=== PATIENT | female | born 1965 | race Caucasian/White ===

== ENCOUNTER → 2020-01-04 | Outpatient (CLI) | payer MEDICARE ==
--- NOTE | 2020-01-04 09:11 | REP ---
Abdominal Right Upper Quadrant Ultrasound: Abdominal right upper quadrant ultrasound for the the epigastric pain, heartburn.: There are no comparison studies. There is no cholelithiasis, gallbladder wall thickening or pericholecystic fluid. There is no intrahepatic or extrahepatic biliary duct dilatation. The common biliary duct measures 2.7 mm in diameter. The hepatic parenchyma is the the homogeneous. There are no hepatic masses. The visualized areas of the pancreas are unremarkable. Portions of the pancreas are obscured by bowel gas. The right kidney measures 9.6 x 4.4 x 3.9 cm and is normal size. There is no right renal calculus or hydronephrosis. There is a small echogenic solid mass in the right renal lower pole measuring 0.5 x 0.4 x 0.4 cm. The There is no right upper quadrant abdominal free fluid. The Impression: No cholelithiasis or biliary duct dilatation. No ultrasound evidence of acute cholecystitis. Portions of the pancreas are obscured by bowel gas. 0.5 cm small right renal lower pole, solid nodule. Follow-up CT or MRI without and with IV contrast might be considered for further evaluation. Electronically Signed by Rancho Mcdonald MD 01/04/2020 09:04 A
== END ==
LOC: M RAD 07:17
PROVIDERS: ATTEND Internal Medicine Gastroenterology
DX: R10.13 Epigastric pain (principal)

== ENCOUNTER → 2020-05-12 | Outpatient (CLI) | payer MEDICARE ==
[~2020-05-12] MED LIST: CYCL5TAB PO; FLUO40CA PO; GABA600T4 PO; HYDR-3716 PO; LORA-674 PO; TRAZ150T90 PO
== END ==
LOC: M LABSMTC 10:20
PROVIDERS: ATTEND Anesthesiology
DX: Z01.818 Encounter for other preprocedural examination (principal); Z11.59 Encounter for screening for other viral diseases
CPT/HCPCS: C9803; U0003

== ENCOUNTER 2020-05-24 12:10 | Day surgery (SDC) | payer MEDICARE ==
[~2020-05-24] VITALS: Ht 154.9 cm; Wt 65.8 kg
[2020-05-24] MEDS ORDERED: propofoL 200 MG/20 ML VIAL ONE (12:11)
--- NOTE | 2020-07-05 11:26 | ROOR ---
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 Procedure: Pre-Anesthesia Assessment: - The heart rate, respiratory rate, oxygen saturations, blood pressure, adequacy of pulmonary ventilation, and response to care were monitored throughout the procedure. The Endoscope was introduced through the mouth, and advanced to the second part of duodenum. The upper GI endoscopy was accomplished without difficulty. The patient tolerated the procedure well. Findings: The Z-line was regular and was found 35 cm from the incisors. No other significant abnormalities were identified in a careful examination of the stomach. Biopsies were taken with a cold forceps in the gastric antrum for Helicobacter pylori testing. The exam of the duodenum was otherwise normal. Impression: - Z-line regular, 35 cm from the incisors. - Biopsies were taken with a cold forceps for Helicobacter pylori testing. - The examination was otherwise normal. Recommendation: - Patient has a contact number available for emergencies. The signs and symptoms of potential delayed complications were discussed with the patient. Return to normal activities tomorrow. Written discharge instructions were provided to the patient. - Discharge patient to home. - Resume previous diet. - Follow an antireflux regimen. - Continue present medications. - Await pathology results. - Telephone GI clinic for pathology results in 1 week. - Return to referring physician. - The findings and recommendations were discussed with the patient. Johnnie Yuen MD Johnnie Yuen MD 05/24/2020 1:00:59 PM Number of Addenda: 0 Note Initiated On: 05/24/2020 12:48 PM Estimated Blood Loss: Estimated blood loss: none.
--- NOTE | 2020-07-05 11:26 | ROOR ---
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 Procedure: Pre-Anesthesia Assessment: - The heart rate, respiratory rate, oxygen saturations, blood pressure, adequacy of pulmonary ventilation, and response to care were monitored throughout the procedure. The Colonoscope was introduced through the anus and advanced to the cecum, identified by appendiceal orifice and ileocecal valve. The colonoscopy was performed without difficulty. The patient tolerated the procedure well. The quality of the bowel preparation was excellent. Findings: The perianal and digital rectal examinations were normal. Non-bleeding internal hemorrhoids were found during retroflexion. The hemorrhoids were small and Grade I (internal hemorrhoids that do not prolapse). Scattered small-mouthed diverticula were found in the recto-sigmoid colon, sigmoid colon and descending colon. The exam was otherwise without abnormality on direct and retroflexion views. Impression: - Non-bleeding internal hemorrhoids. - Diverticulosis in the recto-sigmoid colon, in the sigmoid colon and in the descending colon. - The examination was otherwise normal on direct and retroflexion views. - No specimens collected. - The exam was otherwise normal to the cecum. Recommendation: - Patient has a contact number available for emergencies. The signs and symptoms of potential delayed complications were discussed with the patient. Return to normal activities tomorrow. Written discharge instructions were provided to the patient. - High fiber diet. - Discharge patient to home. - Continue present medications. - Repeat colonoscopy in 10 years for screening purposes. - Return to referring physician. - The findings and recommendations were discussed with the patient. Johnnie Yuen MD Johnnei Yuen MD 05/24/2020 1:14:22 PM Electronically signed by Johnnie Yuen MD Number of Addenda: 0 Note Initiated On: 05/24/2020 12:42 PM Estimated Blood Loss: Estimated blood loss: none.
== END 2020-05-24 13:58 | disposition home or self-care (01) ==
LOC: M OPP 12:10
PROVIDERS: ATTEND Internal Medicine Gastroenterology
DX: Z12.11 Encounter for screening for malignant neoplasm of colon (principal); K64.0 First degree hemorrhoids; K57.30 Diverticulosis of large intestine without perforation or abscess without bleeding; R10.13 Epigastric pain; Z79.899 Other long term (current) drug therapy
CPT/HCPCS: 43239; 88305; G0121

== ENCOUNTER → 2021-01-25 | Outpatient (CLI) | payer MEDICARE ==
--- NOTE | 2021-01-25 10:26 | REPVR ---
PROCEDURE INFORMATION: Exam: MR Cervical Spine Without Contrast Exam date and time: 01/25/2021 10:01 AM Age: 55 years old Clinical indication: Patient HX: Neck pain for several years; Additional info: Spondylosis TECHNIQUE: Imaging protocol: Multiplanar magnetic resonance images of the cervical spine without contrast. COMPARISON: No relevant prior studies available. FINDINGS: Vertebrae: There is straightening of the cervical spine which could be secondary to positioning or muscle spasm. The cervical vertebral bodies are normal height and alignment.No acute fracture or dislocation is seen.The atlantoaxial articulation is normal. Spinal cord: The cervical spinal cord is normal in thickness and signal intensity.There is no cord compression or intramedullary signal abnormality. Spinal epidural space: There is no evidence for epidural mass or hemorrhage. C2-C3: No significant disc disease. No significant spinal stenosis. C3-C4: No disc herniation is seen.There is bilateral uncovertebral hypertrophic changes.The facet joints demonstrate mild degenerative hypertrophy and sclerosis.There is mild bilateral foraminal stenosis. C4-C5: No disc herniation is seen.There is bilateral uncovertebral hypertrophic changes.The facet joints demonstrate mild degenerative hypertrophy and sclerosis.There is mild bilateral foraminal stenosis. C5-C6: Moderately reduced in height and T2 signal indicating degeneration. Mild degenerative endplate changes. Moderate marginal anterior osteophytes.There is a mild diffuse posterior bulge causing mild effacement of the thecal sac.There is bilateral uncovertebral hypertrophic changes.The facet joints demonstrate mild degenerative hypertrophy and sclerosis.There is no evidence of spinal canal narrowing. There is mild bilateral foraminal stenosis. C6-C7: Moderately reduced in height and T2 signal indicating degeneration. Mild degenerative endplate changes. Moderate marginal anterior osteophytes.There is a mild diffuse posterior bulge causing mild effacement of the thecal sac.There is bilateral uncovertebral hypertrophic changes.The facet joints demonstrate mild degenerative hypertrophy and sclerosis.There is no evidence of spinal canal narrowing. There is mild bilateral foraminal stenosis. C7-T1: There is no significant degenerative disc herniation.The spinal canal and neural foramina are patent and without significant stenosis. Soft tissues: The prevertebral soft tissues appear normal. Brain: The visualized brain parenchyma is unremarkable. Vertebral arteries: Expected flow voids in the vertebral arteries. IMPRESSION: MRI of the cervical spine reveals multilevel degenerative spondylitic changes and degenerative disc disease as described above. There is no evidence of spinal canal narrowing. Electronically signed by: Sriram Bertrand On 01/25/2021 10:26:13 AM
== END ==
LOC: M RAD 09:00
PROVIDERS: ATTEND Physical Medicine & Rehabilitation
DX: M47.892 Other spondylosis, cervical region (principal)